=== PATIENT | female | born 1960 | race Caucasian/White ===

== ENCOUNTER 2018-10-15 07:08 | Day surgery (SDC) | payer BC, OTHER ==
[~2018-10-15] VITALS: Ht 165.1 cm; Wt 45.4 kg
[~2018-10-15 07:08] MED LIST: IBUP80TA PO; [UNRECOGNIZED DRUG - CODE] PO
[2018-10-15] MEDS ORDERED: NS 1,000 ML IV ONE (08:30)
[2018-10-15] MEDS ORDERED: PROPOFOL 500 MG/50 ML VIAL As Ordered ONE (09:16)
[2018-10-15] MEDS ORDERED: LIDOCAINE 2% INJ 100 MG/5 ML SDV (FOR ANES.) As Ordered ONE (09:16)
--- NOTE | 2018-10-15 09:26 | ROOR ---
Patient Name: Alma Delia Kaur Procedure Date: 10/15/2018 9:05 AM Date of : 1960 Age: 58 Room: [facility] Gender: Female Note Status: Finalized Procedure: Colonoscopy Indications: Screening for colorectal malignant neoplasm Providers: Phu ASHFORD MD Referring MD: EH BEAULIEU MD Requesting Provider: Medicines: Monitored Anesthesia Care Complications: No immediate complications. Procedure: Pre-Anesthesia Assessment: - The heart rate, respiratory rate, oxygen saturations, blood pressure, adequacy of pulmonary ventilation, and response to care were monitored throughout the procedure. The Colonoscope was introduced through the anus and advanced to the terminal ileum, with identification of the appendiceal orifice and IC valve. The colonoscopy was performed without difficulty. The patient tolerated the procedure well. The quality of the bowel preparation was good. Findings: The perianal and digital rectal examinations were normal. A 5 mm polyp was found in the distal sigmoid colon. The polyp was sessile. The polyp was removed with a cold snare. Resection and retrieval were complete. Mild sigmoid diverticulosis and small internal hemorrhoids. The exam was otherwise without abnormality on direct and retroflexion views. Impression: - One 5 mm polyp in the distal sigmoid colon, removed with a cold snare. Resected and retrieved. - Mild sigmoid diverticulosis and small internal hemorrhoids. - The examination was otherwise normal on direct and retroflexion views. Recommendation: - Telephone endoscopist for pathology results in 2 weeks. - If the pathology report reveals adenomatous tissue, then repeat the colonoscopy for surveillance in 3 - 5 years. - If the pathology report indicates hyperplastic polyp, then repeat colonoscopy for screening purposes in 10 years. Phu Ashford MD Phu ASHFORD MD 10/15/2018 9:25:44 AM This report has been signed electronically. Number of Addenda: 0 Note Initiated On: 10/15/2018 9:05 AM Estimated Blood Loss: Estimated blood loss: none.
[2018-10-15 09:49] VITALS: BP 141/91
[2018-10-15] MEDS ORDERED: THROMBIN SOLN 5,000 UNITS VIAL As Ordered ONE (11:45)
[2018-10-15] MEDS ORDERED: EPINEPHrine 1MG/10ML SYRINGE 1.5IN As Ordered ONE (11:45)
[2018-10-15] MEDS ORDERED: LIDOCAINE VISCOUS 2% SOLN 15ML UDC As Ordered ONE (11:45)
[2018-10-15] MEDS ORDERED: CETACAINE SPRAY 5GM As Ordered ONE (11:45)
[2018-10-15] MEDS ORDERED: LIDOCAINE 1% SDV INJ 30 ML VIAL As Ordered ONE (11:45)
== END 2018-10-15 09:55 | disposition home or self-care (01) ==
LOC: M OPP 07:08
PROVIDERS: ATTEND Internal Medicine Gastroenterology
DX: Z12.11 Encounter for screening for malignant neoplasm of colon (principal); K51.40 Inflammatory polyps of colon without complications; K57.30 Diverticulosis of large intestine without perforation or abscess without bleeding; K64.8 Other hemorrhoids; Z80.42 Family history of malignant neoplasm of prostate; Z98.890 Other specified postprocedural states; Z79.899 Other long term (current) drug therapy; Z88.0 Allergy status to penicillin; Z88.2 Allergy status to sulfonamides

== ENCOUNTER → 2021-07-08 | Outpatient (CLI) | payer BC, OTHER ==
--- NOTE | 2021-07-08 11:31 | REPMRS ---
Patient History The patient states she has not had a clinical breast exam in over a year. Family history of breast cancer at age 38 in niece, breast cancer in paternal grandmother, prostate cancer in father. No breast complaints today Patient signed the MRS sheet 1st covid vaccine 01/22/21-left arm-Moderna 2nd covid vaccine 02/16/21-left arm Most recent priors done @ [facility] Patient Identification Verified Digital Woman Screen Mammo: July 08, 2021 - Exam #: [id number] Bilateral CC and MLO view(s) were taken. Technologist: Claudia Francois, Technologist Prior study comparison: August 04, 2020, bilateral digital mammo screening bilat, performed at [facility]. August 02, 2019, bilateral digital mammo screening bilat, performed at [facility]. August 01, 2018, bilateral digital mammo screening bilat, performed at [facility]. FINDINGS: There are scattered fibroglandular densities. The Volpara volumetric breast density category is: B. There is a stable well-circumscribed nodular density in the medial aspect of the right breast unchanged from multiple prior studies. This has regressed in size since the 20/09 prior study. There is a moderate amount of residual fibroglandular tissue which is fairly symmetric. There is no interval development of dominant mass, architectural distortion, or grouped microcalcification typical of malignancy. There has been no change in the appearance of the mammogram from the prior studies. 3-D tomosynthesis shows no additional findings. Assessment: BI-RADS/ACR category 2 mammogram. Benign Findings. Recommendation Routine screening mammogram of both breasts in 1 year (for women over age 40). This patient's [facility] Lifetime Breast Cancer Risk is estimated at 11.8 %. This mammogram was interpreted with the aid of an FDA-approved computer-aided dectection system. Electronically Signed By: Brian Garg MD 07/08/21 [id number]
== END ==
LOC: M WHC 09:53
PROVIDERS: ATTEND Internal Medicine
DX: Z12.31 Encounter for screening mammogram for malignant neoplasm of breast (principal); Z80.3 Family history of malignant neoplasm of breast

== ENCOUNTER → 2022-03-07 | Outpatient (CLI) | payer BC, OTHER | LOC: M WHC 08:23 | PROVIDERS: ATTEND Family Medicine | DX: N63.20 Unspecified lump in the left breast, unspecified quadrant (principal) ==

== ENCOUNTER → 2023-03-10 | Outpatient (CLI) | payer BC, OTHER | LOC: M WHC 10:11 | DX: Z12.31 Encounter for screening mammogram for malignant neoplasm of breast (principal) ==